=== PATIENT | male | born 1955 | race Caucasian/White ===

== ENCOUNTER 2016-06-10 06:06 | Day surgery (SDC) | payer BC ==
--- NOTE | ~2016-06-10 | EGD ---
EGD REPORT [facility] [address] [place]. [address] NAME: PATRICIA MEDRANO : [birth year] STATUS : [facility] PAT#: [id number] AGE: 61 ADM/REG DATE : 06/10/16 MR#: [id number] REPORT SERV DATE: 06/16/16 DICTATED BY: GISELE SIMON DATE: 06/16/16 REPORT STATUS : Draft [facility] DATE: 06/16/16 Endoscopy Center Patient Name: Patricia Medrano Date of : 1955 Attending MD: GISELE SIMON MD Procedure Date No Time: 06/10/2016 Procedure: Colonoscopy Indications: Screening in patient at increased risk: Colorectal cancer in father 60 or older Referring MD: JOSEPH HERNANDEZ Medicines: See the Anesthesia note for documentation of the administered medications Complications: No immediate complications. Procedure: Pre-Anesthesia Assessment: - ASA Grade Assessment: II - A patient with mild systemic disease. After I obtained informed consent, the scope was passed under direct vision. Throughout the procedure, the patient's blood pressure, pulse, and oxygen saturations were monitored continuously. The [facility] H190L [id number] was introduced through the anus and advanced to the terminal ileum, with identification of the appendiceal orifice and IC valve. The colonoscopy was performed without difficulty. The patient tolerated the procedure well. The quality of the bowel preparation was adequate. Findings: The perianal and digital rectal examinations were normal. Diverticula were found in the sigmoid colon and in the ascending colon. Internal hemorrhoids were found during retroflexion and were small. Impression: - Diverticulosis in the sigmoid colon and in the ascending colon. - Internal hemorrhoids. Recommendation: - Patient has a contact number available for emergencies. The signs and symptoms of potential delayed complications were discussed with the patient. Return to normal activities tomorrow. Written discharge instructions were provided to the patient. - Regular diet. - Continue present medications. - Repeat colonoscopy in 10 years for screening purposes. - Repeat colonoscopy in 10 years. IF develop symptoms like bleeding or diarrhea, or Family history of colon EGD REPORT [address] [address] NAME: PATRICIA MEDRANO : [birth year] STATUS : [facility]#: [id number] AGE: 61 ADM/REG DATE : 06/10/16 MR#: [id number] REPORT SERV DATE: 06/16/16 DICTATED BY: GISELE SIMON DATE: 06/16/16 REPORT STATUS : Draft TRANSCRIBED BY: Hunie DATE: 06/16/16 cancer or polyps before age 60, you could require sooner colonoscopy Procedure Code(s): --- Professional --- 59638, Colonoscopy, flexible, proximal to splenic flexure; diagnostic, with or without collection of specimen(s) by brushing or washing, with or without colon decompression (separate procedure) Diagnosis Code(s): --- Professional --- K64.8, Other hemorrhoids K57.30, Diverticulosis of large intestine without perforation or abscess without bleeding Z12.11, Encounter for screening for malignant neoplasm of colon Z80.0, Family history of malignant neoplasm of digestive organs CPT copyright 2013 [employer]. All rights reserved. The codes documented in this report are preliminary and upon button tufter review may be revised to meet current compliance requirements. Gisele Simon MD GISELE SIMON MD 06/10/2016 7:52 AM This report has been signed electronically. Number of Addenda: 0 Note Initiated On: 06/10/2016 7:31 AM Scope Withdrawal Time 0 hours 6 minutes 7 seconds [id number] [place] [id number]
--- NOTE | ~2016-06-10 | EGD ---
EGD REPORT [facility] [address] [place] [address] NAME: PATRICIA MEDRANO : [birth year] STATUS : [facility] PAT#: [id number] AGE: 61 ADM/REG DATE : 06/10/16 MR#: [id number] REPORT SERV DATE: 06/10/16 DICTATED BY: GISELE SIMON DATE: 06/10/16 REPORT STATUS : Draft [facility]: [facility] DATE: 06/10/16 Endoscopy Center Patient Name: Patricia Medrano Date of : 1955 Attending MD: GISELE SIMON MD Procedure Date No Time: 06/10/2016 Procedure: Colonoscopy Indications: Screening in patient at increased risk: Colorectal cancer in father 60 or older Referring MD: JOSEPH HERNANDEZ Medicines: See the Anesthesia note for documentation of the administered medications Complications: No immediate complications. Procedure: Pre-Anesthesia Assessment: - ASA Grade Assessment: II - A patient with mild systemic disease. After I obtained informed consent, the scope was passed under direct vision. Throughout the procedure, the patient's blood pressure, pulse, and oxygen saturations were monitored continuously. The [facility] H190L [id number] was introduced through the anus and advanced to the terminal ileum, with identification of the appendiceal orifice and IC valve. The colonoscopy was performed without difficulty. The patient tolerated the procedure well. The quality of the bowel preparation was adequate. Findings: The perianal and digital rectal examinations were normal. Diverticula were found in the sigmoid colon and in the ascending colon. Internal hemorrhoids were found during retroflexion and were small. Impression: - Diverticulosis in the sigmoid colon and in the ascending colon. - Internal hemorrhoids. Recommendation: - Patient has a contact number available for emergencies. The signs and symptoms of potential delayed complications were discussed with the patient. Return to normal activities tomorrow. Written discharge instructions were provided to the patient. - Regular diet. - Continue present medications. - Repeat colonoscopy in 10 years for screening purposes. - Repeat colonoscopy in 10 years. IF develop symptoms like bleeding or diarrhea, or Family history of colon EGD REPORT [address] [address] NAME: PATRICIA MEDRANO : [birth year] STATUS : [facility]#: [id number] AGE: 61 ADM/REG DATE : 06/10/16 MR#: [id number] REPORT SERV DATE: 06/10/16 DICTATED BY: GISELE SIMON DATE: 06/10/16 REPORT STATUS : Draft TRANSCRIBED BY: [employer] DATE: 06/10/16 cancer or polyps before age 60, you could require sooner colonoscopy Procedure Code(s): --- Professional --- 34340, Colonoscopy, flexible, proximal to splenic flexure; diagnostic, with or without collection of specimen(s) by brushing or washing, with or without colon decompression (separate procedure) Diagnosis Code(s): --- Professional --- K64.8, Other hemorrhoids K57.30, Diverticulosis of large intestine without perforation or abscess without bleeding Z12.11, Encounter for screening for malignant neoplasm of colon Z80.0, Family history of malignant neoplasm of digestive organs CPT copyright 2013 [employer]. All rights reserved. The codes documented in this report are preliminary and upon radio equipment installer review may be revised to meet current compliance requirements. Gisele Simon MD GISELE SIMON MD 06/10/2016 7:52 AM This report has been signed electronically. Number of Addenda: 0 Note Initiated On: 06/10/2016 7:31 AM Scope Withdrawal Time 0 hours 6 minutes 7 seconds [address] [place] [address]
[~2016-06-10 06:06] MED LIST: ANOROELLIPTA INH; ATRONASAL6 NAS; FLONASE NAS; KLONO1 PO; LEXAPRO10 PO; MULTIPLE VIT PO; PREV30 PO
== END 2016-06-10 23:59 | disposition home or self-care (01) ==
LOC: DMU 06:06
PROVIDERS: Internal Medicine Gastroenterology
PROC: 0DJ08ZZ Inspection of Upper Intestinal Tract, Via Natural or Artificial Opening Endoscopic (ICD-10-PCS; principal; 2016-06-10 07:00)
DX: Z12.11 Encounter for screening for malignant neoplasm of colon (principal); K64.8 Other hemorrhoids; K57.30 Diverticulosis of large intestine without perforation or abscess without bleeding; J44.9 Chronic obstructive pulmonary disease, unspecified; G47.33 Obstructive sleep apnea (adult) (pediatric); F41.9 Anxiety disorder, unspecified; Z87.891 Personal history of nicotine dependence; Z80.0 Family history of malignant neoplasm of digestive organs; Z98.890 Other specified postprocedural states; Z79.51 Long term (current) use of inhaled steroids; Z79.899 Other long term (current) drug therapy